=== PATIENT | female | born 1965 | race Caucasian/White ===

== ENCOUNTER → 2021-01-18 12:50 | Outpatient (CLI) | payer OTHER, SELFPAY | PROVIDERS: PCP Preventive Medicine Occupational Medicine; Referring Provider Preventive Medicine Occupational Medicine; Visit Provider Preventive Medicine Occupational Medicine | DX: U07.1 COVID-19 (principal) | CPT/HCPCS: 36415; 86769 ==

== ENCOUNTER 2023-07-27 12:04 | Emergency (ER) | payer OTHER, SELFPAY ==
[2023-07-27 12:05] VITALS: BP 146/86; PULSE 80; RESP 16; TEMP 36.6; O2SAT 100; BMI 25.2
--- NOTE | 2023-07-27 12:21 | CT_ITS ---
STUDY: CT ABDOMEN AND PELVIS WITHOUT CONTRAST REASON FOR EXAM: Female, 57 years old. Abdominal pain RADIATION DOSAGE (If Supplied By Facility): CTDIvol = ( 6.13 ) mGy, DLP = ( 272.54 ) mGycm TECHNIQUE: Transaxial images were obtained from the dome of the diaphragm to the symphysis pubis without oral contrast, and without intravenous contrast. Sagittal and coronal images were reconstructed. Individualized dose optimization techniques were used for this CT. COMPARISON: No relevant prior comparison study available FINDINGS: Evaluation of the abdominal viscera is limited in the absence of intravenous contrast. LOWER THORAX: There is a calcified granuloma in the right lower lobe. The visualized lung bases are otherwise clear. The visualized portions of the heart and pericardium are within normal limits. GALLBLADDER / BILE DUCTS: There are no calcified gallstones present. The common bile duct is normal in caliber. There are no calcified ductal stones. LIVER: There is a simple cyst noted in the liver. SPLEEN: The spleen is normal in size. PANCREAS: The pancreas demonstrates an unremarkable unenhanced appearance. ADRENAL GLANDS: The adrenal glands are within normal limits. KIDNEYS / BLADDER: There are no renal or ureteral stones. There is no hydronephrosis. There are no focal renal lesions identified on this noncontrast exam. The urinary bladder is partially distended and appears grossly unremarkable. STOMACH / BOWEL: Normal visualized stomach. There is no bowel obstruction or inflammation. The appendix is visualized and appears normal. PERITONEUM / RETROPERITONEUM: There is no abdominal or pelvic free air, free fluid or fluid collection. There is no abnormal soft tissue mass identified. There is no abdominal or pelvic lymphadenopathy. VESSELS: The aorta is normal in caliber. The IVC is unremarkable. BONES: There are degenerative changes noted in the spine. There are no destructive osseous lesions. SOFT TISSUES: The visualized soft tissues are within normal limits. CT/Abdomen/Pelvis without Cont IMPRESSION: No acute abdominal or pelvic pathology. Electronically Signed: Jermaine Limon MD at 13:24 EST ,
--- NOTE | 2023-07-27 12:23 | EX.ED.DYSGE1 ---
HPI <María Soliman RN - Last Filed: 07/27/23 13:39> History of Present Illness Chief Complaint: Complaint Detail of Chief Complaint: Dysuria Informant: patient Onset/Context/Timing Onset: Yesterday Context: Gradual Onset Timing: Continuous Quality: Pressure and burning Location: Lower abdomen Current Severity: 8/10 Maximum Severity: 2/10 Worsened by: Urination Associated Symptoms Associated Symptoms: Diarrhea, chills Narrative Narrative: Patient presents to the ED from [facility] for lower abdominal pressure and burning with urination that began suddenly yesterday. Patient reports being seen at [facility] yesterday in which her urine was negative for infection. She was prescribed Pyridium which is providing minimal relief. She returned to [facility] today for reevaluation of continued symptoms and was referred to the ED. Patient also reports right mid back pain, describes as aching. She indicates she has only taken the Pyridium for pain. Patient denies hematuria. Denies fevers. Denies nausea and vomiting. Denies vaginal discharge. Denies past history of kidney stones. Patient reports continued ability to tolerate p.o. intake. Denies recent surgeries or travel. Prior similar symptoms: No Recent Illness/Hospitalization: No PFSH <María Soliman RN - Last Filed: 07/27/23 13:39> [facility] Medical History no medical history Home Medications cephalexin 500 mg capsule 500 mg PO Q12 #14 CAPSULES 07/27/23 [Rx Last Taken Unknown] phenazopyridine 200 mg tablet mg 07/27/23 [History Last Taken Unknown] valacyclovir 500 mg tablet mg 07/27/23 [History Last Taken Unknown] Allergy/AdvReac Type Severity Reaction Status Date / Time No Known Allergies Allergy Verified 07/27/23 12:06 Surgical History no surgical history Social History Smoking Status: Never smoker ROS <María Soliman RN - Last Filed: 07/27/23 13:39> ROS ED Constitutional Constitutional ED: Reports chills; Denies fever(s) or sweats Cardiovascular Cardiovascular: Denies chest pain or palpitations Respiratory/Chest Respiratory/Chest: Denies cough or dyspnea Gastrointestinal Gastrointestinal: Reports abdominal pain, diarrhea and other Details: Abdominal pressure ; Denies nausea or vomiting Genitourinary Genitourinary ED: Reports dysuria; Denies hematuria or urinary frequency Musculoskeletal Musculoskeletal: Reports back pain and other Details: Mid right back pain ; Denies arthralgias or myalgias Integumentary Denies rash Neurologic Neurologic: Denies headache(s), paresthesias or weakness Psychiatric Psychiatric: Denies anxiety EXAM <María Soliman RN - Last Filed: 07/27/23 13:39> Physical Exam Const Vital Signs: 07/27/23 12:05 07/27/23 13:52 Temperature 97.9 F 98.1 F Temperature Source Temporal Pulse Rate 80 69 Respiratory Rate 16 16 Blood Pressure 146/86 H 135/79 H Blood Pressure Mean 106 97 Pulse Ox 100 96 Oxygen Delivery Method Room Air Positive well nourished and well developed General Appearance ED: well developed and NAD HEENT Reports moist mucous membranes Eyes PERRL Chest Wall inspection of chest normal and palpation of chest normal Resp normal respiratory effort and clear to auscultation bilaterally Auscultation: Negative for rales, rhonchi or wheezes Cardio regular rate, regular rhythm, S1 normal heart sound and S2 normal heart sound GI normal to inspection, nondistended, normoactive bowel sounds Palpation: tender LLQ, RLQ, LUQ and RUQ; Negative for rebound tenderness present Back/Spine General Back: CVA tenderness right Extremity normal to inspection General Extremety ED: Negative for edema or tenderness General Extremity: Negative for edema Neuro oriented x3 Sensorium / Orientation: alert Motor Exam: strength 5/5 throughout Psych mental status grossly normal Skin no rashes or lesions noted, no wounds and skin turgor normal <Dr. Juanita Dickson MD - Last Filed: 07/27/23 14:40> Physical Exam Const Vital Signs: 07/27/23 12:05 07/27/23 13:52 Temperature 97.9 F 98.1 F Temperature Source Temporal Pulse Rate 80 69 Respiratory Rate 16 16 Blood Pressure 146/86 H 135/79 H Blood Pressure Mean 106 97 Pulse Ox 100 96 Oxygen Delivery Method Room Air MDM <María Soliman RN - Last Filed: 07/27/23 13:39> MDM MDM Narrative Medical decision making narrative: IV initiated. Labwork obtained to evaluate for leukocytosis, anemia, and electrolyte derangement. Urinalysis obtained to evaluate for infection/hematuria. IV fluids initiated due to concern for UTI. History & Record Review Discussion w/independent historian: Patient Lab Data Attestation: I reviewed the patient's lab results. Labs: Laboratory Results - last 24 hr 07/27/23 12:30 WBC 8.1 RBC 3.54 L Hgb 12.7 Hct 37.1 MCV 104.8 H MCH 35.9 H MCHC 34.2 RDW Std Deviation 48.1 H RDW Coeff of Marcello 12.3 Plt Count 217 MPV 10.1 Immature Gran % (Auto) 0.200 Neut % (Auto) 72.2 H Lymph % (Auto) 20.1 [place] % (Auto) 6.1 Eos % (Auto) 1.2 Baso % (Auto) 0.2 Absolute Neuts (auto) 5.8 Absolute Lymphs (auto) 1.62 Nucleated RBC % 0 Sodium 141 Potassium 3.7 Chloride 109 H Carbon Dioxide 28.0 Anion Gap 4 L BUN 12 Creatinine 0.90 Estim Creat Clear Calc 56.89 Est GFR (MDRD) Af Amer 83 Est GFR (MDRD) Non-Af 68 BUN/Creatinine Ratio 13.3 Glucose 101 Calcium 9.2 Urine Color Barbara Urine Clarity Sl. Cloudy Urine pH 6.5 Ur Specific [place] 1.010 Urine Protein 30 H Urine Glucose (UA) Normal Urine Ketones Negative Urine Occult Blood 250 H Urine Nitrite Positive H Urine Bilirubin 3 H Urine Urobilinogen 4 H Ur Leukocyte Esterase 500 H Urine RBC 0-5 SEEN Urine WBC >100 SEEN Ur Squamous Epith Cells 0 SEEN Urine Bacteria 0 SEEN Urine Mucus 0 SEEN Radiography Diagnostic Testing: Clinical Impression(s) from Imaging Studies Abdomen/Pelvis CT 07/27/23 12:21 IMPRESSION: No acute abdominal or pelvic pathology. Electronically Signed: Jermaine Limon MD at 13:24 EST , Differential Diagnosis Abdominal Pain: UTI Differential Diagnosis: Diverticulitis Management Discussion w/another healthcare provider: Other (Dr. Dickson, ED provider) Treatment and Re-Evaluation :: Lab work and imaging reviewed. CBC shows a normal white count of 8.1. Neutrophils slightly elevated at 72.2%. Hemoglobin normal at 12.7. Chemistry is normal with a normal sodium of 141, potassium 3.7, BUN 12, and creatinine 0.90. Glucose is 101. Urinalysis is positive for blood. Positive for nitrates. Urine bilirubin is 3, urobilinogen is 4, and urine is positive for leukocytes at 500. Greater than 100 white blood cells are seen in the urine. However bacteria is negative. CT of abdomen and pelvis is negative for kidney stones, diverticulitis, or colitis. Due to patient's urinary symptoms and positive nitrates and white blood cells in the urine, patient will be treated for UTI with Keflex. Urine culture is ordered. Patient will follow-up with Dr. Valencia in 1 week as needed. If urine culture indicates a change in antibiotics, patient will be notified. On reassessment patient awake and alert in bed. No acute distress noted. Plan discussed with patient and patient agreeable. Patient to be discharged home. <Dr. Juanita Dickson MD - Last Filed: 07/27/23 14:40> [facility] Lab Data Labs: Laboratory Results - last 24 hr 07/27/23 12:30 WBC 8.1 RBC 3.54 L Hgb 12.7 Hct 37.1 MCV 104.8 H MCH 35.9 H MCHC 34.2 RDW Std Deviation 48.1 H RDW Coeff of Marcello 12.3 Plt Count 217 MPV 10.1 Immature Gran % (Auto) 0.200 Neut % (Auto) 72.2 H Lymph % (Auto) 20.1 [place] % (Auto) 6.1 Eos % (Auto) 1.2 Baso % (Auto) 0.2 Absolute Neuts (auto) 5.8 Absolute Lymphs (auto) 1.62 Nucleated RBC % 0 Sodium 141 Potassium 3.7 Chloride 109 H Carbon Dioxide 28.0 Anion Gap 4 L BUN 12 Creatinine 0.90 Estim Creat Clear Calc 56.89 Est GFR (MDRD) Af Amer 83 Est GFR (MDRD) Non-Af 68 BUN/Creatinine Ratio 13.3 Glucose 101 Calcium 9.2 Urine Color Barbara Urine Clarity Sl. Cloudy Urine pH 6.5 Ur Specific [place] 1.010 Urine Protein 30 H Urine Glucose (UA) Normal Urine Ketones Negative Urine Occult Blood 250 H Urine Nitrite Positive H Urine Bilirubin 3 H Urine Urobilinogen 4 H Ur Leukocyte Esterase 500 H Urine RBC 0-5 SEEN Urine WBC >100 SEEN Ur Squamous Epith Cells 0 SEEN Urine Bacteria 0 SEEN Urine Mucus 0 SEEN Radiography Diagnostic Testing: Clinical Impression(s) from Imaging Studies Abdomen/Pelvis CT 07/27/23 12:21 IMPRESSION: No acute abdominal or pelvic pathology. Electronically Signed: Jermaine Limon MD at 13:24 EST , Treatment and Re-Evaluation :: Lab work and imaging reviewed. CBC shows a normal white count of 8.1. Neutrophils slightly elevated at 72.2%. Hemoglobin normal at 12.7. Chemistry is normal with a normal sodium of 141, potassium 3.7, BUN 12, and creatinine 0.90. Glucose is 101. Urinalysis is positive for blood. Positive for nitrates. Urine bilirubin is 3, urobilinogen is 4, and urine is positive for leukocytes at 500. Greater than 100 white blood cells are seen in the urine. However bacteria is negative. CT of abdomen and pelvis is negative for kidney stones, diverticulitis, or colitis. Due to patient's urinary symptoms and positive nitrates and white blood cells in the urine, patient will be treated for UTI with Keflex. Urine culture is ordered. Patient will follow-up with Dr. Valencia in 1 week as needed. If urine culture indicates a change in antibiotics, patient will be notified. On reassessment patient awake and alert in bed. No acute distress noted. Plan discussed with patient and patient agreeable. Patient to be discharged home. Patient seen and evaluated with [employer] student. I personally interviewed and examined the patient. I was involved in all aspects of patient's orders, interpretation of results, and treatment. Patient presents secondary to lower abdominal pain as well as dysuria. She states her symptoms started yesterday. She was seen at urgent care where her urine did not test positive for UTI. She was given Pyridium. She presents secondary to continued symptoms today. She does not believe she has had a fever. She denies history of kidney stone or diverticulitis. No history of ovarian cyst. She has no vaginal discharge. Patient lying in bed no acute distress. Nontoxic-appearing. Head and neck examination unremarkable. Heart is regular rate and rhythm. Lung sounds are clear. Abdomen is soft with mild diffuse tenderness. No guarding or rebound. Active bowel sounds noted. CBC reveals normal white count 8.1 with normal differential. Hemoglobin is 12.7. Chemistry studies are unremarkable with normal renal function. Urinalysis does reveal positive nitrites with greater than 100 white cells, however 0 bacteria noted at this time. CT flank obtained reveals no acute abnormalities. Patient's urine will be sent for culture. Her symptoms are consistent with UTI. We will treat her with a course of Keflex and monitor her urine culture. Return instructions were provided. Discharge Plan Triage Chief Complaint: Complaint ED Provider: Juanita Dickson Dx/Rx/DC Orders Clinical Impression: UTI (urinary tract infection) Instructions: ED UTIs Women Prescriptions: New cephalexin 500 mg capsule 500 mg PO Q12 Qty: 14 0RF No Action phenazopyridine 200 mg tablet Patient Comments: take 1 tablet by mouth three times a day if needed valacyclovir 500 mg tablet Patient Comments: take 1 tablet by mouth once daily Primary Care Provider: Max Adams Referrals: Julian Tobar DO [Non-Staff] - Activity Restrictions/Additional Instructions: Your lab work and CT are negative. Your urine shows a possible UTI. A culture of your urine has been sent to the lab. You will be notified if there is a need to change antibiotics. Increase fluid intake. Continue Pyridium as needed. Complete course of antibiotics. Follow-up with Dr. Valencia in 1 week if needed. Return for worsening or concerning symptoms. Disposition Disposition: Home, Self Care Discharge Date/Time: 07/27/23 13:54
[2023-07-27 12:40] LABS: Bacteria 0 SEEN /hpf (None Seen); Mucous, Urine 0 SEEN /hpf (<or=2+); Squamous Epithelial Cells - UA 0 SEEN /hpf (5-10)
[2023-07-27 12:41] LABS: Absolute Lymphocyte Count 1.62 X10^3/uL (0.83-4.51); Absolute Neutrophil Count 5.8 X10^3/uL (2.0-7.7); Basophil# 0.02 X10^3/uL; Basophil% 0.2 % (0-1); Eosinophils% 1.2 % (0-5); Hematocrit 37.1 % (37-47); Hemoglobin 12.7 g/dL (12.0-15.0); Lymphocyte # 1.62 X10^3/ul (0.83-4.51); Lymphocyte % 20.1 % (19-41); Mean Corp Hgb Conc 34.2 g/dL (32-36); Mean Corpuscular Hgb 35.9 pg (27.0-32.0); Mean Corpuscular Volume 104.8 fL (81-99); Mean Platelet Vol. 10.1 fl (6.2-12.0); Monocyte# 0.49 X10^3/uL; Monocyte% 6.1 % (0-10); NRBC Flagged by Analyzer 0 % (0-5); Neutrophil # 5.81 X10^3/uL (2.7-7.7); Neutrophil % 72.2 % (47-70); Platelet Count 217 K/mm3 (150-450); RBC Distribution Width CV 12.3 % (11.6-14.6); RBC Distribution Width SD 48.1 fl (35.1-43.9); Red Blood Count 3.54 M/mm3 (4.2-5.4); White Blood Count 8.1 K/mm3 (4.4-11.0)
[2023-07-27 12:42] LABS: Color, Urine Amber (Yellow); Glucose, Dipstick Normal (Normal); Ketone-Dipstick Negative (Negative); Leukocyte Esterase-Dipstick 500 /ul (Negative); Nitrite-Dipstick Positive (Negative); Occult Blood-Urine 250 /ul (Negative); Protein-Dipstick 30 mg/dl (Negative); Urine Clarity Sl. Cloudy (Clear); Urine Urobilinogen 4 mg/dl (Normal); Urine pH 6.5 (5.0 - 8.0)
[2023-07-27] MEDS: 0.9% Normal Saline (1000mL) 1,000 ML 1000 ML IV (12:43)
[2023-07-27 12:44] LABS: Urine Bilirubin Dipstick 3 mg/dL (Negative)
--- OUTSIDE RECORDS SUMMARY | 2023-07-27 12:46 | XMS RPT_ITS | CCD ---
Author Name Unknown Address [address] [place] [address] Organization [facility] Care Team Providers Care Bed Setter Name Role Phone Dawson Tobar Primary Care Provider [phone] BERNADETTE HAERN, DR ARELLANO Primary Care Physician [phone] LYOD MERRITT Attending Unavailable LOYD MERRITT Referring Unavailable DAWSON TOBAR Primary Care Unavailable BERNADETTE HEARN, DR ARELLANO Primary Care Unavailable BERNADETTE HEARN, DR ARELLANO Attending Unavailable BERNADETTE HEARN, DR ARELLANO Attending Unavailable BERNADETTE HEARN, DR ARELLANO Primary Care Unavailable BERNADETTE HERAN, DR ARELLANO Attending Unavailable BERNADETTE HEARN, DR ARELLANO Primary Care Unavailable Medications Current Medications Medication Drug Class(es) Dates Sig (Normalized) Sig (Original) albuterol MDI (90 mcg/inh) CFC free inhalation aerosol (5 sources) Start: 05-22-2022 take 2 puff(s) by inhalation every six hours as needed for wheezing albuterol MDI (90 mcg/inh) CFC free inhalation aerosol 2 puff(s), Inhalation, q6hr, PRN as needed for wheezing, # 1 EA, 0 Refill(s), Pharmacy: [id number], 155, cm, 05/22/22 15:29:00 EST, Height, kg, 05/22/22 15:29:00 EST, Dosing Weight Start Date: 05/22/22 Status: Ordered Completed/Discontinued Medications Medication Drug Class(es) Dates Sig (Normalized) Sig (Original) [id number] 200 actuat albuterol 0.09 mg/actuat metered dose inhaler (4 sources) beta2-Adrenergic Agonist Start: 09-07-2021 albuterol HFA (PROVENTIL HFA, VENTOLIN HFA) 90 mcg/actuation inhaler Problems Active Problems Problem Classification Problem Date Documented Date Episodic/Chronic Asthma (5 sources) Exercise-induced asthma 08-13-2019 Chronic Diseases of white blood cells (2 sources) Granulomatous disorder 06-12-2023 Chronic Disorders of lipid metabolism (4 sources) Mixed hyperlipidemia; Translations: [Mixed hyperlipidemia] Onset: 06-13-2023 06-14-2023 Chronic Past or Other Problems Problem Classification Problem Date Documented Date Episodic/Chronic Blindness and vision defects (8 sources) Bilateral myopia of eyes; Translations: [Myopia, bilateral] Onset: 04-28-2017 04-28-2017 Episodic Other eye disorders (3 sources) Tear film insufficiency; Translations: [Dry eye syndrome of bilateral lacrimal glands] Onset: 07-26-2017 Episodic Other eye disorders (1 source) Dry eye syndrome of bilateral lacrimal glands; Translations: [Dry eye syndrome of both eyes] Onset: 07-29-2019 Episodic Residual codes; unclassified (1 source) Other specified postprocedural states; Translations: [S/P LASIK surgery of both eyes] Onset: 07-26-2017 Episodic Results Test Name Value Interpretation Reference Range Facil ity Encounters Encounter Date Encounter Type Care Provider Facility Start: 06-17-2023 End: 06-18-[address] EILEEN FLEMING DO Facility:[facility] Start: 06-17-2023 End: 06-17-[address] EILEEN FLEMING DO [facility] Start: 06-13-2023 End: 06-18-[address] EILEEN FLEMING DO Facility:[facility] Start: 06-13-2023 End: 06-18-2023 Encounter for general adult medical examination without abnormal findings DR EILEEN FLEMING DO Facility:[facility] Start: 06-13-2023 End: 06-17-[address] EILEEN FLEMING DO [facility] Start: 04-10-2023 End: 04-11-[address] EILEEN FLEMING DO Facility:[facility] Start: 10-23-2022 End: 10-24-2022 ambulatory LOYD MERRITT Facility:[facility] Start: 04-19-2022 End: 04-19-[address] EILEEN FLEMING DO [facility] Start: 10-19-2021 End: 10-19-[address] EILEEN FLEMING DO [facility] Start: 09-14-2021 Telephone encounter Loyd gavin MD Work Phone: [facility] Procedures Date Procedure Procedure Detail Performing Clinician Start: 06-21-2017 History of laser assisted in situ keratomileusis S/P LASIK surgery of both eyes Loyd Merritt MD Work Phone: Start: 06-02-1982 Laser assisted in situ keratomileusis DR EILEEN FLEMING DO Start: 06-02-[address] EILEEN FLEMING DO History of laser ass isted in situ keratomileusis S/P LASIK surgery of both eyes Loyd Merritt MD Work Phone: Plan of Treatment Date Care Activity Detail Author Start: 01-31-2022 Influenza vaccination INFLUENZA (#1) [facility] Start: 2014 SHINGRIX VACCINE (1 of 2) SHINGRIX V ACCINE (1 of 2) [facility] Start: 2009 COLOGUARD (FIT-DNA) COLOGUARD (FIT-D NA) [facility] Start: 2009 Colonoscopy COLONOSCOPY [facility] Start: 2009 COLORECTAL CANCER SCREENING COLORECTAL CANCER SCREENING [facility] Start: [address] COLONOGRAPHY [facility] Start: 2009 DIABETES SCREEN DIABETES SCREEN [facility] Start: 2009 FECAL OCCULT BLOOD FECAL OCCULT BLOO D [facility] Start: 2009 LIPID SCREEN LIPID SCREEN [facility] Start: 2009 SIGMOIDOSCOPY SIGMOIDOSCOPY [facility] Start: 2004 Mammography MAMMOGRAM [facility] Start: 1994 HPV TESTING HPV TESTING [facility] Start: 1985 PAP TESTING PAP TESTING [facility] Start: 12-30-1983 Urine microalbumin profile DTAP,TDAP ,TD (1 - Tdap) [facility] Start: 1982 HEPATITIS C SCREENING HEPATITIS C SC REENING [facility] Start: 1982 HIV SCREENING HIV SCREENING [facility] Start: 1976 Adult depression scr eening assessment DEPRESSION SCREENING [facility] Start: 1969 COVID-19 VACCINE (1) COVID-19 VACCIN E (1) [facility] Start: 07-01-1965 COVID-19 VACCINE (#1) COVID-19 VACCI NE (#1) [facility] Immunizations Immunization Date Immunization Notes Care Provider Fa cili 05-10-2021 influenza virus vaccine, unspecified formulation DR EILEEN FLEMING DO [facility] 03-03-2020 influenza virus vaccine, unspecified formulation DR EILEEN FLEMING DO [facility] 03-20-2019 influenza virus vaccine, unspecified formulation DR EILEEN FLEMING DO [facility] 04-09-2018 influenza virus vaccine, unspecified formulation DR EILEEN FLEMING DO [facility] 04-10-2017 influenza virus vaccine, unspecified formulation DR EILEEN FLEMING DO [facility] 07-04-2016 influenza virus vaccine, unspecified formulation DR EILEEN FLEMING DO [facility] 05-04-2015 influenza virus vaccine, unspecified formulation DR EILEEN FLEMING DO [facility] 03-16-2014 influenza virus vaccine, unspecified formulation DR EILEEN FLEMING DO [facility] Payers Date Payer Category Payer Private Health Insurance [id number] 2021 Private Health Insurance ARMIN LUNDBERG [id number] 2021-Present [phone] [address] [place] [address] PPO [id number] 2021 Unknown [id number] 1965 Unknown [id number] 1965 Unknown [id number] 1965 Unknown [id number] Social History Date Type Detail Facility Start: 12-05-2020 Tobacco smoking stat [facility] Never smoked tobacco [facility] Start: 09-13-2021 Alcohol intake Current drinke r of alcohol (finding) [facility] Start: 04-28-2017 History SDOH Alcohol Comment Rarely [facility] Start: 1965 Sex Assigned At Not on file [facility] Start: 09-03-2021 End: 09-13-2021 Exposure to SARS-CoV-2 (event) Not sure [facility] Sex Assigned At Female [facility] Clinical Notes 09-13-2021 to 06-17-2023 RadiologyRadiologyTelephone Encounter - Mary Morales - 09/14/2021 10:03 AM Elizabeth Merritt MD - 09/13/2021 10:51 AM EDTLaboratoryRadiologyLaboratory Note Date & Type Note Facility 06-17-2023 Evaluation + Plan note Diagnostic Tests PendingMethylmalonic Acid, Serum 06/17/23 Future Scheduled TestsMA Mammo Screening Bilateral w/ Jimmy 04/28/23MA Mammo Screening Bilateral w/ Jimmy 03/06/23 [facility] 04-28-2023 Evaluation + Plan note Future Scheduled TestsMA Mammo Screening Bilateral w/ Jimmy 04/28/23MA Mammo Screening Bilateral w/ Jimmy 03/06/23 [facility] Azael Salas 10-23-2022 Note HNO ID: [id number] Author: Loyd Merritt MD Service: ? Author Type: Physician Type: Progress Notes Filed: 10/23/2022 9:27 AM Note Text: Assessment and Plan 1. Dry eye syndrome of both eyes 2. Meibomian gland dysfunction (MGD) of upper and lower lids of both eyes -symptomatic -punctal plugs have helped in the past -drops help greatly 3. S/P LASIK surgery of both eyes -with monovision left eye -in 2018 -happy with outcome 4. Lattice degeneration of retina, bilateral -stable both eyes Plan: -Retina precautions reviewed. Return to clinic as soon as possible if increased floaters, flashes, or shadows. -artificial tears twice a day both eyes -restasis twice a day both eyes -follow-up 1 year with dilated fundus exam, sooner as needed for punctal plugs if not better I have confirmed and edited as necessary the relevant ophthalmic history, ROS, and the neuro exam findings as obtained by others. I have seen and examined Harleen Ferraro. I have discussed the case and the management of this patient's care with the Resident/Fellow, if applicable. I also have reviewed and agree with the assessment and plan as stated above and agree with all of its relevant components. Loyd Merritt MD [facility] 09-14-2021 Miscellaneous Notes Received approval for Restasis via [employer]. Called pharmacy to make them aware. documented in this encounter [facility] 09-13-2021 History of Present illness Narrative Assessment and Plan 1. Dry eye syndrome of both eyes 2. Meibomian gland dysfunction (MGD) of upper and lower lids of both eyes -symptomatic -punctal plugs have helped in the past -drops help greatly 3. S/P LASIK surgery of both eyes -with monovision left eye -in 2018 -happy with outcome 4. Lattice degeneration of retina, bilateral -stable both eyes Plan: -Retina precautions reviewed. Return to clinic as soon as possible if increased floaters, flashes, or shadows. -continue artificial tears twice a day both eyes -restasis twice a day both eyes -follow-up 1 year with dilated fundus exam, sooner as needed for punctal plugs if not better I have confirmed and edited as necessary the relevant ophthalmic history, ROS, and the neuro exam findings as obtained by others. I have seen and examined Harleen Ferraro. I have discussed the case and the management of this patient's care with the Resident/Fellow, if applicable. I also have reviewed and agree with the assessment and plan as stated above and agree with all of its relevant components. Loyd Merritt MD documented in this encounter [facility] Evaluation + Plan note Future Appointments Appointment Date:11/23/2021 01:30:00 PM Scheduled Provider:EILEEN FLEMING DO Location:[facility] Appointment Type:PC OV Future Scheduled TestsPathology Battery Plate Remover Request 02/01/21XR Spine Cervical w/ Obliques 5 Views 10/19/21 [facility] Evaluation + Plan note Future Appointments Appointment Date:05/02/2022 01:00:00 PM Scheduled Provider:TODD MEMBRENO Location:[facility] Appointment Type: PURIFICATION OPERATOR Appointment Date:07/29/2022 01:30:00 PM Scheduled Provider:JOAQUINA AGUILA MD Location: TRAN Appointment Type: PURIFICATION OPERATOR Future Scheduled TestsGlucose Level 03/01/22Lipid Profile 03/01/22Hepatitis C Antibody IgG 03/01/22 [facility] N[facility] No data available for this section [facility] Hospital Discharge instructions No data available for this section [facility] Progress note No data available for this section [facility] Reason for Referral Specialty Diagnoses / Procedures Referred By Jamie cota Referred To Contact Loyd Merritt MD [address] [place] [address] Referral ID Status Reason Start Date Expiration Date V isits Requested Visits Authorized [id number] Pending Review 1 1 Medications Administered Section Active Administered Medications - up to 3 most recent administrations Medication Order MAR Action Action Date Dose Rate Site proparacaine 0.5 % 1 Drop (ALCAINE) 1 Drop, BOTH EYES, DIRECTED, Starting on Ale 09/13/21 at 1030, Until Ale 09/13/21 at 2229, Administer for pneumo tonometry, tonopen tonometry, or pachymetry. In the event of a proparacaine shortage, administer tetracaine 0.5% ophthalmic drops 1 drop in the left eye as directed for pneumo tonometry, tonopen tonometry, or pachymetry Given 09/13/2021 10:21 AM EDT 1 Drop tropicamide 1 % 1 Drop (MYDRIACYL) 1 Drop, BOTH EYES, DIRECTED, Starting on Ale 09/13/21 at 1030, Until Ale 09/13/21 at 2229, Administer for dilation Given 09/13/2021 10:21 AM EDT 1 Drop Summary Purpose Family History No Family History Records FoundNo Family History Records Found No data available for this section No data available for this section No Family History Records Found Advance Directives No Advanced Directives Records FoundNo Advanced Directives Records FoundNo Advanced Directives Records Found Additional Source Comments Source Comments (unrecognize d section and content) In the event this informatio n is protected by the Federal Confidentiality of Alcohol and Drug Abuse Patient Records regulations: The Federal rules restrict any use of the information to criminally investigate or prosecute any alcohol or drug abuse patient.[facility] the event this information is protected by the Federal Confidentiality of Alcohol and Drug Abuse Patient Records regulations: The Federal rules restrict any use of the information to criminally investigate or prosecute any alcohol or drug abuse patient.[facility] Reason for Visit (unrecogniz ed section and content) Reason Comments Insurance Authorization Care Teams (unrecognized sec tion and content) Bed Setter Relationship Specialty Start Date End Date Dawson Tobar PCP - General Family Practice 11/29/16 Care Team (unrecognized sect ion and content) Care Team Personnel Name: EILEEN FLEMING DO Position: P4 Physician - Primary Care Member Role: Primary Care Physician Address: Address: [address] [place] [address] Care Team Related Persons Name: SHARIF FERRARO Address: Home [address] [place] [phone] [place] Care Team Personnel Name: EILEEN FLEMING DO Position: P4 Physician - Primary Care Member Role: Primary Care Physician Address: Address: [address] [place] [address] Care Team Related Persons Name: SHARIF FERRARO Address: Home [address] [place], [place] [id number] [place] [address] INFORMATION SOURCE (unrecogn ized section and content) DATE CREATED AUTHOR AUTHOR'S PARAMJIT ATION 11/08/2022 [facility] DATE CREATED AUTHOR AUTHOR'S ORGANIZ ATION 06/21/2023 [facility] ([place]) FOR RECORDS PERTAINING TO PATIENTS WHO ARE OR HAVE BEEN ENROLLED IN A CHEMICAL DEPENDENCY/SUBSTANCEABUSE PROGRAM, SOME INFORMATION MAY BE OMITTED. This clinical summary was aggregated from multiple sources. Caution should be exercised in using it in the provision of clinical care. This summary normalizes information from multiple sources, and as a consequence, information in this document may materially change the coding, format and clinical context of patient data. In addition, data may be omitted in some cases. CLINICAL DECISIONS SHOULD BE BASED ON THE PRIMARY CLINICAL RECORDS. [employer] provides no warranty or guarantee of the accuracy or completeness of information in this document.
[2023-07-27 12:48] LABS: Red Blood Cells-Urine 0-5 SEEN /hpf (0-5); White Blood Cells >100 SEEN /hpf (0-5)
[2023-07-27 12:55] LABS: Anion Gap 4 (5-15); BUN 12 mg/dL (7-18); BUN/Creat Ratio 13.3 RATIO (10-20); Calcium,Total 9.2 mg/dL (8.5-10.1); Chloride 109 mmol/L (98-107); EST Glomerular Filtration Rate 68 mL/min (>60); Est Glom Filt Rate - Afr Amer 83 mL/min (>60); Estimated Creatinine Clearance 56.89 ml/min; Glucose 101 mg/dL (74-106); Potassium 3.7 mmol/L (3.5-5.1); Sodium Level 141 mmol/L (136-145)
[2023-07-27] MEDS: Cephalexin 250 MG Capsule 500 MG PO (13:48)
[2023-07-27 13:52] VITALS: BP 135/79; PULSE 69; RESP 16; TEMP 36.7; O2SAT 96
== END 2023-07-27 13:54 | disposition home or self-care (01) ==
PROVIDERS: Emergency Provider Emergency Medicine; PCP Student in an Organized Health Care Education/Training Program; Visit Provider Emergency Medicine
DX: N39.0 Urinary tract infection, site not specified (principal); R19.7 Diarrhea, unspecified; R30.0 Dysuria
CPT/HCPCS: 74176; 80048; 81001; 85025; 87086; 87088; 87186; 96360; 99284; J7030; A4216